=== PATIENT | female | born 1935 | race Caucasian/White ===

== ENCOUNTER 2024-05-11 14:58 | Inpatient (IN) | payer MEDICARE, MEDICAID ==
[~2024-05-11] VITALS: Ht 157.5 cm; Wt 66.2 kg
[2024-05-11 16:02] LABS: BASOPHILS % 0.9 % (0.0-2.0); EOSINOPHILS % 4.2 % (0.0-5.0); HEMOGLOBIN. 11.4 g/dL (12.0-16.0); LYMPHOCYTES % 26.8 % (20.0-50.0); MEAN CORPUSCULAR HGB CONC 31.8 g/dL (31.0-37.0); MEAN CORPUSCULAR VOLUME 94.3 fL (81.0-99.0); MEAN PLATELET VOLUME 8.9 fl (7.4-10.4); MONOCYTES % 6.9 % (2.0-8.0); NEUTROPHILS % 61.2 % (40.0-76.0); PLATELET 189 x1000/uL (130-400); RED BLOOD CELL COUNT 3.82 mill/uL (4.2-5.4); RED CELL DISTRIBUTION WIDTH 17.4 % (11.6-14.6); WHITE BLOOD COUNT 6.1 x1000/uL (4.5-11.0)
[2024-05-11 16:06] LABS: CHLORIDE 112 mEq/L (98-107); POTASSIUM 3.6 mEq/L (3.5-5.1); SODIUM 140 mEq/L (136-145)
[2024-05-11 16:07] LABS: CARBON DIOXIDE 21 mEq/L (21-32)
[2024-05-11 16:11] LABS: PROTHROMBIN TIME 11.4 sec (9.6-11.0)
[2024-05-11 16:12] LABS: CREATININE 0.6 mg/dL (0.6-1.0); GLUCOSE 109 mg/dL (70-105); UREA NITROGEN BLOOD 12 mg/dL (9-23)
[2024-05-11 16:14] LABS: ALANINE AMINOTRANSFERASE 16 IU/L (10-49); ALBUMIN 3.3 g/dL (3.2-4.8); ASPARTATE AMINOTRANSFERASE 23 IU/L (<34); BILIRUBIN DIRECT 0.3 mg/dL (<=3.0); BILIRUBIN TOTAL 0.9 mg/dL (0.1-1.0); PROTEIN TOTAL 5.1 g/dL (6.0-8.3)
[2024-05-11 16:15] LABS: ETHANOL BLOOD < 10 mg/dL (<10)
[2024-05-11 16:16] LABS: TROPONIN I HIGH SENSITIVITY 69 ng/L (3.0-34)
[2024-05-11] MEDS: IOHEXOL-350 100 ML BOTTLE ONE (17:45)
[2024-05-11] MEDS: ASPIRIN 81MG TABLET PO ONE (18:22)
[2024-05-11 19:57] LABS: *AMPHETAMINES SCREEN URINE NEGATIVE (NEGATIVE); *BARBITURATES SCREEN URINE NEGATIVE (NEGATIVE); *BENZODIAZEPINES SCREEN URINE NEGATIVE (NEGATIVE); *COCAINE SCREEN URINE NEGATIVE (NEGATIVE); CANNABINOID URINE SCREEN NEGATIVE (NEGATIVE); ECSTASY MDMA SCREEN URINE NEGATIVE (NEGATIVE); METHADONE URINE SCREEN NEGATIVE (NEGATIVE); OPIATES URINE SCREEN NEGATIVE (NEGATIVE); PHENCYCLIDINE URINE SCREEN NEGATIVE (NEGATIVE)
[2024-05-11 20:02] LABS: CLARITY URINE CLEAR (CLEAR); COLOR URINE YELLOW (YELLOW); GLUCOSE URINE NEGATIVE (NEGATIVE); KETONES URINE NEGATIVE (NEGATIVE); LEUKOCYTE ESTERASE URINE NEGATIVE (NEGATIVE); NITRITE URINE NEGATIVE (NEGATIVE); OCCULT BLOOD URINE NEGATIVE (NEGATIVE); PH URINE 6.5 (4.5-8.0); PROTEIN URINE NEGATIVE (NEGATIVE); SPECIFIC GRAVITY URINE 1.072 (1.005-1.030)
[2024-05-11 20:10] LABS: TROPONIN I HIGH SENSITIVITY 72 ng/L (3.0-34)
[2024-05-11] MEDS ORDERED: DEXTROSE 50% WATER 50ML SYRINGE IV PRN (21:45)
[2024-05-11] MEDS ORDERED: ONDANSETRON HCL 4MG/2ML INJ IV PRN (21:45)
[2024-05-11] MEDS ORDERED: IPRATROPIUM/ALBUTEROL 0.5-3(2.5)MG/3ML NEB HHN PRN (21:45)
[2024-05-11] MEDS ORDERED: HYDRALAZINE 20MG/ML VIAL IV PRN (22:15)
[2024-05-11 22:20] LABS: IRON 42 ug/dL (50-170)
[2024-05-11 22:23] LABS: TOTAL IRON BINDING CAPACITY 380 ug/dl (250-425)
[2024-05-11 22:36] VITALS: BP 157/103; PULSE 59; RESP 18; TEMP 97.7
[2024-05-12] VITALS (7 sets, daily range): BP systolic 100–151; BP diastolic 38–77; PULSE 43–49; RESP 18–20; TEMP 97.7–97.9
[2024-05-12] MEDS: ACETAMINOPHEN 650MG/20.3ML UDC PO PRN (04:51)
[2024-05-12] MEDS ORDERED: GUAI600T26 MT (05:26)
[2024-05-12] MEDS ORDERED: LATA2.5D14 EACHEYE (05:26)
[2024-05-12] MEDS ORDERED: METF-873 MT (05:26)
[2024-05-12] MEDS ORDERED: LISI-186 PO (05:26)
[2024-05-12] MEDS ORDERED: OMEP20TA23 MT (05:26)
[2024-05-12] MEDS ORDERED: FISH12002 MT (05:26)
[2024-05-12] MEDS ORDERED: ALBU6.7H15 INH (05:26)
[2024-05-12] MEDS ORDERED: ASPI-1497 PO (05:26)
[2024-05-12] MEDS ORDERED: POLY15DR17 EACHEYE (05:26)
[2024-05-12] MEDS ORDERED: CLOT45CR62 VG (05:26)
[2024-05-12] MEDS ORDERED: POLY250017 MT (05:26)
[2024-05-12] MEDS ORDERED: BENZ200C52 MT (05:26)
[2024-05-12] MEDS ORDERED: BISA10SU62 RC (05:26)
[2024-05-12] MEDS ORDERED: ACET-2128 MT (05:26)
[2024-05-12] MEDS ORDERED: MAGN400C PO (05:26)
[2024-05-12] MEDS ORDERED: TOPUD MT (05:26)
[2024-05-12] MEDS ORDERED: GUAI600T44 PO (05:26)
[2024-05-12] MEDS ORDERED: GABA-529 PO (05:26)
[2024-05-12] MEDS ORDERED: ATOR40TA70 MT (05:26)
[2024-05-12] MEDS ORDERED: DOXY150T9 MT (05:26)
[2024-05-12] MEDS ORDERED: ASPI-1079 PO (05:32)
[2024-05-12] MEDS ORDERED: BISA1POW MC (05:37)
[2024-05-12] MEDS ORDERED: CLOT15CR27 TP (05:37)
[2024-05-12] MEDS ORDERED: DOXY100C5 MT (05:37)
[2024-05-12] MEDS ORDERED: GABA-529 MT (05:38)
[2024-05-12] MEDS: BLOOD SUGAR DIAGNOSTIC STRIP TEST SCH (06:32)
[2024-05-12] MEDS: INSULIN LISPRO 100 UNITS/ML SUBCUT SCH (06:32)
[2024-05-12 08:43] LABS: BASOPHILS % 0.5 % (0.0-2.0); EOSINOPHILS % 4.3 % (0.0-5.0); HEMOGLOBIN. 12.1 g/dL (12.0-16.0); LYMPHOCYTES % 29.3 % (20.0-50.0); MEAN CORPUSCULAR HEMOGLOBIN 29.8 pg (28.0-32.0); MEAN CORPUSCULAR HGB CONC 32.7 g/dL (31.0-37.0); MEAN CORPUSCULAR VOLUME 91.1 fL (81.0-99.0); MEAN PLATELET VOLUME 9.5 fl (7.4-10.4); MONOCYTES % 6.6 % (2.0-8.0); NEUTROPHILS % 59.3 % (40.0-76.0); PLATELET 187 x1000/uL (130-400); RED BLOOD CELL COUNT 4.06 mill/uL (4.2-5.4); RED CELL DISTRIBUTION WIDTH 16.3 % (11.6-14.6)
[2024-05-12 08:49] LABS: CARBON DIOXIDE 22 mEq/L (21-32); CHLORIDE 109 mEq/L (98-107); POTASSIUM 3.9 mEq/L (3.5-5.1); SODIUM 141 mEq/L (136-145)
[2024-05-12 08:50] LABS: CALCIUM 8.9 mg/dL (8.7-10.4)
[2024-05-12 08:55] LABS: CREATININE 0.6 mg/dL (0.6-1.0); GLUCOSE 106 mg/dL (70-105); TRIGLYCERIDE 87 mg/dL (0-150); TROPONIN I HIGH SENSITIVITY 65 ng/L (3.0-34); UREA NITROGEN BLOOD 12 mg/dL (9-23)
[2024-05-12 08:56] LABS: LDL CHOLESTEROL 47 mg/dL (5-100); T4 FREE 0.99 ng/dL (0.89-1.76)
[2024-05-12 08:57] LABS: CHOLESTEROL 116 mg/dL (<200); CREATINE KINASE 38 IU/L (34-145); HDL CHOLESTEROL 52 mg/dL (>65); THYROID STIMULATING HORMONE 3.71 uIU/mL (0.55-4.78)
[2024-05-12] MEDS ORDERED: ENOXAPARIN 30MG/0.3ML SYR SUBCUT SCH (09:00)
[2024-05-12] MEDS: FAMOTIDINE 20MG/2ML VIAL IV SCH (09:00)
[2024-05-12 11:46] LABS: IRON 74 ug/dL (50-170)
[2024-05-12 11:49] LABS: TOTAL IRON BINDING CAPACITY 303 ug/dl (250-425)
[2024-05-12 12:18] LABS: FOLIC ACID (FOLATE) SERUM 12.79 ng/mL (>5.38)
[2024-05-12 12:19] LABS: VITAMIN B12 SERUM 265 pg/mL (211-911)
[2024-05-12 12:44] LABS: TROPONIN I HIGH SENSITIVITY 66 ng/L (3.0-34)
[2024-05-12] MEDS ORDERED: ATROPINE SULFATE 1MG/10ML SYR IV PRN (17:15)
[2024-05-12 19:58] LABS: PHOSPHORUS 3.7 mg/dL (2.5-4.9)
[2024-05-12] MEDS: ATORVASTATIN CALCIUM 40MG TABLET PO SCH (21:12)
[2024-05-13] VITALS (8 sets, daily range): BP systolic 93–138; BP diastolic 42–64; PULSE 46–79; RESP 16–20; TEMP 97.5–98.6
[2024-05-13] MEDS: CLOPIDOGREL 75MG TABLET PO SCH (09:00)
[2024-05-13] MEDS: ASPIRIN 81MG EC TABLET PO SCH (09:00)
[2024-05-13 13:34] LABS: CHLORIDE 108 mEq/L (98-107); POTASSIUM 4.3 mEq/L (3.5-5.1); SODIUM 141 mEq/L (136-145)
[2024-05-13 13:35] LABS: CALCIUM 9.2 mg/dL (8.7-10.4); CARBON DIOXIDE 28 mEq/L (21-32)
[2024-05-13 13:39] LABS: BASOPHILS % 0.4 % (0.0-2.0); EOSINOPHILS % 3.4 % (0.0-5.0); HEMATOCRIT. 38.4 % (36.0-48.0); HEMOGLOBIN. 12.2 g/dL (12.0-16.0); LYMPHOCYTES % 20.3 % (20.0-50.0); MEAN CORPUSCULAR HEMOGLOBIN 28.8 pg (28.0-32.0); MEAN CORPUSCULAR HGB CONC 31.8 g/dL (31.0-37.0); MEAN CORPUSCULAR VOLUME 90.6 fL (81.0-99.0); MEAN PLATELET VOLUME 9.2 fl (7.4-10.4); MONOCYTES % 6.3 % (2.0-8.0); NEUTROPHILS % 69.6 % (40.0-76.0); PLATELET 201 x1000/uL (130-400); RED BLOOD CELL COUNT 4.24 mill/uL (4.2-5.4); RED CELL DISTRIBUTION WIDTH 16.1 % (11.6-14.6); WHITE BLOOD COUNT 7.8 x1000/uL (4.5-11.0)
[2024-05-13 13:40] LABS: CREATININE 0.6 mg/dL (0.6-1.0); GLUCOSE 110 mg/dL (70-105); UREA NITROGEN BLOOD 15 mg/dL (9-23)
[2024-05-13 13:43] LABS: PHOSPHORUS 3.9 mg/dL (2.5-4.9)
[2024-05-14] VITALS: BP 125/41; PULSE 48; RESP 18; TEMP 97.7
[2024-05-14 01:26] LABS: CREATINE KINASE 37 IU/L (34-145)
[2024-05-14 04:00] VITALS: BP 134/44; PULSE 43; RESP 18; TEMP 96.1
[2024-05-14 08:00] VITALS: BP 126/38; PULSE 46; RESP 18; TEMP 97.7
[2024-05-14] MEDS: LOSARTAN 25 MG TABLET PO SCH (08:31)
[2024-05-14] MEDS: DOCUSATE SODIUM 100MG CAPSULE PO PRN (08:39)
[2024-05-14 10:39] LABS: CHLORIDE 108 mEq/L (98-107); SODIUM 141 mEq/L (136-145)
[2024-05-14 10:40] LABS: CARBON DIOXIDE 26 mEq/L (21-32)
[2024-05-14 10:41] LABS: CALCIUM 9.5 mg/dL (8.7-10.4)
[2024-05-14 10:45] LABS: CREATININE 0.7 mg/dL (0.6-1.0); GLUCOSE 125 mg/dL (70-105); UREA NITROGEN BLOOD 13 mg/dL (9-23)
[2024-05-14 10:46] LABS: BASOPHILS % 0.7 % (0.0-2.0); EOSINOPHILS % 3.2 % (0.0-5.0); HEMATOCRIT. 40.2 % (36.0-48.0); HEMOGLOBIN. 13.2 g/dL (12.0-16.0); LYMPHOCYTES % 22.6 % (20.0-50.0); MEAN CORPUSCULAR HEMOGLOBIN 29.7 pg (28.0-32.0); MEAN CORPUSCULAR HGB CONC 32.9 g/dL (31.0-37.0); MEAN CORPUSCULAR VOLUME 90.4 fL (81.0-99.0); MEAN PLATELET VOLUME 8.8 fl (7.4-10.4); NEUTROPHILS % 68.5 % (40.0-76.0); PLATELET 206 x1000/uL (130-400); RED BLOOD CELL COUNT 4.44 mill/uL (4.2-5.4); RED CELL DISTRIBUTION WIDTH 16.3 % (11.6-14.6); WHITE BLOOD COUNT 8.1 x1000/uL (4.5-11.0)
[2024-05-14 12:00] VITALS: BP 128/49; PULSE 48; RESP 18; TEMP 97.7
[2024-05-14] MEDS ORDERED: CLOP-31 PO (14:36)
[2024-05-14] MEDS ORDERED: ASPI-1406 PO (14:36)
[2024-05-14] MEDS ORDERED: LOSA25TA26 PO (14:36)
[2024-05-14] MEDS ORDERED: LIP40 PO (14:36)
[2024-05-14 14:42] VITALS: BP 126/42; PULSE 48; TEMP 97.9; O2SAT 99
[2024-05-14 16:00] VITALS: BP 121/46; PULSE 45; RESP 18; TEMP 97.8
== END 2024-05-14 18:31 | disposition home health service (06) | DRG 45 ==
LOC: ER 14:58 → EDBEDREQ 15:14 → 8WST 18:02 → EDBEDREQ 18:10 → EDBEDREQTM 18:10 → EDBEDREQSVC 18:48
PROVIDERS: ADMIT Hospitalist; ATTEND Hospitalist
DX: I63.512 Cerebral infarction due to unspecified occlusion or stenosis of left middle cerebral artery (principal); I21.4 Non-ST elevation (NSTEMI) myocardial infarction; G93.41 Metabolic encephalopathy; E83.51 Hypocalcemia; G81.91 Hemiplegia, unspecified affecting right dominant side; E11.65 Type 2 diabetes mellitus with hyperglycemia; D64.9 Anemia, unspecified; I10 Essential (primary) hypertension; R00.1 Bradycardia, unspecified; I25.10 Atherosclerotic heart disease of native coronary artery without angina pectoris; R29.700 NIHSS score 0; Z79.84 Long term (current) use of oral hypoglycemic drugs; Z79.899 Other long term (current) drug therapy; Z85.3 Personal history of malignant neoplasm of breast; Z88.0 Allergy status to penicillin; Z90.12 Acquired absence of left breast and nipple; Z92.21 Personal history of antineoplastic chemotherapy; Z92.3 Personal history of irradiation; Z98.61 Coronary angioplasty status
CPT/HCPCS: 36415; 70496; 70498; 70551; 71045; 76700; 80048; 80061; 80076; 80305; 80320; 81003; 82550; 82607; 82728; 82746; 82962; 83036; 83540; 83550; 83735; 84100; 84145; 84439; 84443; 84484; 85025; 92523; 92610; 93005; 93970; 97162; 97166; 97530; 99291; J3490; Q9967; G0480